=== PATIENT | male | born 1975 | race Caucasian/White ===

== ENCOUNTER 2019-03-29 17:51 | Emergency (ER) | payer BC ==
[2019-03-29 18:22] VITALS: BP 155/105; PULSE 80
[2019-03-29] MEDS ORDERED: HYDROmorphone 0.5 MG/0.5 ML Syringe IM ONE (18:51)
--- NOTE | 2019-03-29 18:58 | CR ---
Chest and left ribs: Frontal view of the chest was obtained as well as 3 views of the left ribs. Comparison: Prior chest x-ray of 06/08/18. Slightly limited inspiratory effort is seen. Within this limitation, no acute parenchymal change is suspected within the lungs. Heart size and mediastinum are within normal limits. Nondisplaced fractures are noted within the left 6th and 7th ribs. No additional rib abnormality is appreciated. Impression: 1. 2 left-sided rib fractures. 2. Nothing acute is otherwise seen on accompanying frontal chest x-ray. Diagnostic code #3 This report was dictated in [place] Standard Time
--- NOTE | 2019-03-29 19:18 | EDM.PDOC ---
ED HPI GENERAL MEDICAL PROBLEM - General Chief Complaint: General Stated Complaint: LT UPPER SIDE PAIN FELL ON ICE Time Seen by Provider: 03/29/19 18:51 Source of Information: Reports: Patient, RN Notes Reviewed History Limitations: Reports: No Limitations - History of Present Illness INITIAL COMMENTS - FREE TEXT/NARRATIVE: Patient is a 44-year-old male who presents to the ED for evaluation of left- sided rib pain. Patient notes that he was at [employer] prior to arrival to the ER , when he slipped on ice and fell onto his left rib cage on the backside. He states he did not hit his head, did not lose any consciousness and was able to get up on his own. He does note that taking anything but deep breath makes it really hurt. He did not go home and take any sort of pain medications, as he felt the injury with bad enough that he came to the ER for evaluation. There is no obvious bruising or swelling noted to the area. He is denying pain anywhere else in his body area patient notes he does not have a primary care provider. 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: Other (see below) Other Treatments AIRLINE STEWARDESS: none' Left Pain Score (Numeric/FACES): 7 - Related Data Allergies Allergy/AdvReac Type Severity Reaction Status Date / Time beeswax Allergy Swelling Verified 03/29/19 18:57 bee stings Allergy Swelling Uncoded 03/29/19 18:57 Home Meds: Home Meds Acetaminophen/oxyCODONE [Percocet 325-5 MG] 1 each PO Q6H PRN #20 tab 03/29/19 [ Rx] Past Medical History Respiratory History: Reports: Pneumonia, Recurrent - Past Surgical History GI Surgical History: Reports: Appendectomy Social & Family History - Tobacco Use Smoking Status *Q: Never Smoker - Caffeine Use Caffeine Use: Reports: Coffee - Recreational Drug Use Recreational Drug Use: No ED ROS GENERAL - Review of Systems Review Of Systems: Comprehensive ROS is negative, except as noted in HPI. Respiratory: Denies: Shortness of Breath Cardiovascular: Reports: Chest Pain (L posterior rib cage pain with deep breathing and moving) GI/Abdominal: Denies: Nausea, Vomiting Musculoskeletal: Reports: Back Pain (Left rib cage pain). Denies: Neck Pain Skin: Denies: Bruising ED EXAM, GENERAL - Physical Exam Exam: See Below Exam Limited By: No Limitations General Appearance: Alert, WD/WN, No Apparent Distress Eye Exam: Bilateral Eye: EOMI, Normal Inspection, PERRL Ears: Normal External Exam, Normal Canal, Hearing Grossly Normal, Normal TMs Nose: Normal Inspection, Normal Mucosa, No Blood Throat/Mouth: Normal Inspection, Normal Lips, Normal Teeth, Normal Gums, Normal Oropharynx, Normal Voice, No Airway Compromise Head: Atraumatic, Normocephalic Neck: Normal Inspection Respiratory/Chest: No Respiratory Distress, Lungs Clear, Normal Breath Sounds, No Accessory Muscle Use, Other (Left posterior chest tender to palpation) Cardiovascular: Normal Peripheral Pulses, Regular Rate, Rhythm, No Edema, No Murmur Peripheral Pulses: 3+: Radial (L), Radial (R) GI/Abdominal: Normal Bowel Sounds, Soft, Non-Tender, No Distention, No Mass Extremities: Normal Inspection, Normal Capillary Refill Neurological: Alert, Oriented, Normal Cognition, No Motor/Sensory Deficits Psychiatric: Normal Affect, Normal Mood Skin Exam: Warm, Dry, Intact, Normal Color, No Rash Course - Vital Signs Last Recorded V/S: Last Vital Signs Temp 98.2 F 03/29/19 18:19 Pulse 80 03/29/19 18:19 Resp 24 H 03/29/19 18:19 BP 155/105 H 03/29/19 18:19 Pulse Ox 98 03/29/19 18:19 - Orders/Labs/Meds Orders: Active Orders 24 hr Category Date Time Status Incentive Spirometry [RT Incentive Spirometry] [RC] Care 03/29/19 19:18 Active Q1HWA Meds: Medications Discontinued Medications Generic Name Dose Route Start Last Admin Trade Name Freq PRN Reason Stop Dose Admin Hydromorphone HCl 0.5 mg 03/29/19 18:51 03/29/19 18:58 Dilaudid IM 03/29/19 18:52 0.5 mg ONETIME ONE Administration - Re-Assessments/Exams Free Text/Narrative Re-Assessment/Exam: 03/29/19 19:23 Patient presents to the ED for the evaluation of left-sided rib cage pain. Rib x-rays were obtained at time of triage, and does demonstrate 2 nondisplaced ribs at the sixth and seventh level on the left chest. Otherwise there was no sort of pneumothorax noted. Patient will be given an incentive spirometer, and some pain medications to try at home, I did advise him that rib fractures can be quite painful, and expect that he should be in a small amount of pain with this. He is understanding of this. Departure - Departure Time of Disposition: 19:15 Disposition: Home, Self-Care 01 Condition: Fair Clinical Impression: Multiple fractures of ribs Qualifiers: Encounter type: initial encounter Fracture type: closed Laterality: left Qualified Code(s): S22.42XA - Multiple fractures of ribs, left side, initial encounter for closed fracture - Discharge Information *PRESCRIPTION DRUG MONITORING PROGRAM REVIEWED*: No *COPY OF PRESCRIPTION DRUG MONITORING REPORT IN PATIENT FIONA: No Prescriptions: Acetaminophen/oxyCODONE [Percocet 325-5 MG] 1 each PO Q6H PRN #20 tab PRN Reason: Pain Instructions: Rib Fracture, [id number] Referrals: PCP,None [Primary Care Provider] - Forms: ED Department Discharge Additional Instructions: You have been evaluated in the ED for your left sided rib pain. Your x-ray demonstrated that you have a fracture of your 6th and 7th ribs. These should heal well, broken bones do take 6-8 weeks to heal. Please use ice as tolerated to the affected area. Please try to elevate the affected area to relieve swelling. You may take Tylenol 500 mg or ibuprofen 600mg q6 hrs for pain relief. Please do so until you have a tolerable level of pain with activity. Do not exceed 4000mg Tylenol or 3200mg ibuprofen in a 24 hour time period. You were given a prescription for Percocet, 5/325, please take one tablet every 6 hours as needed for further pain relief. Please try to take as few of these as possible as these can be addictive. These medications can be somewhat constipating as well, recommend that he take a stool softener if not already doing so. You were given an incentive spirometer, please use as directed, do 10 repetitions every hour while awake to help prevent pneumonia. Please return to ED if your symptoms should change or worsen. Sepsis Event Note - Evaluation Sepsis Screening Result: No Definite Risk - Focused Exam Vital Signs: Vital Signs Temp Pulse Resp BP Pulse Ox 03/29/19 18:19 98.2 F 80 24 H 155/105 H 98 Date Exam was Performed: 03/29/19 Time Exam was Performed: 19:19 - My Orders Last 24 Hours: My Active Orders 03/29/19 19:18 Incentive Spirometry [RT Incentive Spirometry] [RC] Q1HWA - Assessment/Plan Last 24 Hours: My Active Orders 03/29/19 19:18 Incentive Spirometry [RT Incentive Spirometry] [RC] Q1HWA
== END 2019-03-29 19:29 | disposition home or self-care (01) ==
LOC: JD.ED 17:51
DX: S22.42XA Multiple fractures of ribs, left side, initial encounter for closed fracture (principal); Z91.030 Bee allergy status; Z91.048 Other nonmedicinal substance allergy status; W00.0XXA Fall on same level due to ice and snow, initial encounter
CPT/HCPCS: 71100; 96372; 99283; J1170

== ENCOUNTER 2023-02-15 07:42 | Day surgery (SDC) | payer BC ==
[~2023-02-15 07:42] MED LIST: Lactated Ringers 1,000 ML IV SCH; Sodium Chloride 0.9% 10 ML Syringe FLUSH PRN; Sodium Chloride 0.9% 10 ML Syringe FLUSH SCH
[2023-02-15] MEDS ORDERED: Midazolam 1 MG/ML 2 ML SDV ONE (08:50)
[2023-02-15] MEDS ORDERED: Propofol 200 MG/20 ML SDV ONE (08:51)
[2023-02-15 10:13] VITALS: BP 124/99; PULSE 71
== END 2023-02-15 10:17 | disposition home or self-care (01) ==
LOC: JD.SDS 07:42
PROVIDERS: ATTEND Specialist
DX: K57.30 Diverticulosis of large intestine without perforation or abscess without bleeding (principal); K21.9 Gastro-esophageal reflux disease without esophagitis; F41.9 Anxiety disorder, unspecified; E78.00 Pure hypercholesterolemia, unspecified; E66.9 Obesity, unspecified; Z68.41 Body mass index [BMI] 40.0-44.9, adult; Z79.899 Other long term (current) drug therapy; Z88.0 Allergy status to penicillin; Z91.030 Bee allergy status
CPT/HCPCS: 45378; J2250; J2704; J7120

== ENCOUNTER 2024-12-06 09:10 | Day surgery (SDC) | payer BC ==
[~2024-12-06 09:10] MED LIST changes: -Lactated Ringers 1,000 ML IV SCH
[2024-12-06] MEDS ORDERED: EPINEPHrine 1 MG/ML SDV ONE (09:31)
[2024-12-06] MEDS: Lactated Ringers 1,000 ML IV SCH (09:40)
[2024-12-06] MEDS ORDERED: Midazolam 1 MG/ML 2 ML SDV ONE (10:28)
[2024-12-06] MEDS ORDERED: fentaNYL 250 MCG/5 ML SDV ONE (10:28)
[2024-12-06] MEDS ORDERED: propofoL 1,000 MG/100 ML 100 ML ONE (10:29)
[2024-12-06] MEDS ORDERED: Ondansetron 4 MG/2 ML SDV ONE (10:33)
[2024-12-06] MEDS ORDERED: Dexamethasone 4 MG/ML 5 ML MDV ONE (10:33)
[2024-12-06] MEDS ORDERED: Phenylephrine 1% 10 MG/ML SDV ONE (11:11)
[2024-12-06] MEDS ORDERED: propofoL 500 MG/50 ML 50 ML ONE (11:22)
[2024-12-06] MEDS ORDERED: Ketorolac 30 MG/ML SDV ONE (11:50)
[2024-12-06] MEDS ORDERED: fentaNYL 100 MCG/2 ML SDV IVPUSH PRN (12:21)
[2024-12-06] MEDS ORDERED: Ondansetron 4 MG/2 ML SDV IVPUSH PRN (12:21)
[2024-12-06 14:12] VITALS: BP 124/85; PULSE 76
== END 2024-12-06 14:15 | disposition home or self-care (01) ==
LOC: JD.SDS 09:10
PROVIDERS: ATTEND Surgery
DX: K80.20 Calculus of gallbladder without cholecystitis without obstruction (principal); I10 Essential (primary) hypertension; E78.00 Pure hypercholesterolemia, unspecified; K21.9 Gastro-esophageal reflux disease without esophagitis; E66.9 Obesity, unspecified; Z68.41 Body mass index [BMI] 40.0-44.9, adult; G47.33 Obstructive sleep apnea (adult) (pediatric); Z88.1 Allergy status to other antibiotic agents; Z88.8 Allergy status to other drugs, medicaments and biological substances; Z91.030 Bee allergy status; Z79.899 Other long term (current) drug therapy
CPT/HCPCS: 47562; A9270; J0169; J0665; J0690; J1100; J1885; J2003; J2250; J2371; J2405; J2704; J3010; J7120; 00790; J3490